=== PATIENT | female | born 1955 | race Caucasian/White ===

== ENCOUNTER 2016-05-08 13:00 | Outpatient (RCR) | payer OTHER ==
[~2016-05-08 13:00] MED LIST: IBUPROFEN600 MG ORAL; NORCO 5-325 TA1 EACH ORAL
== END 2016-06-05 | disposition home or self-care (01) ==
LOC: MERGE 13:00 → PTY 13:00
DX: S92.201 Fracture of unspecified tarsal bone(s) of right foot (principal); X58.XXXD Exposure to other specified factors, subsequent encounter; G40.909 Epilepsy, unspecified, not intractable, without status epilepticus; M81.0 Age-related osteoporosis without current pathological fracture
CPT/HCPCS: 97110; 97140; 97162; G0283

== ENCOUNTER 2016-06-06 10:00 | Outpatient (RCR) | payer OTHER | END 2016-07-03 | disposition home or self-care (01) | LOC: MERGE 10:00 → PTY 10:00 | DX: S92.901G Unspecified fracture of right foot, subsequent encounter for fracture with delayed healing (principal) | CPT/HCPCS: 97110; 97140; G0283 ==

== ENCOUNTER 2016-07-04 11:11 | Outpatient (RCR) | payer OTHER | END 2016-08-03 | disposition home or self-care (01) | LOC: MERGE 11:11 → PTY 11:11 | DX: S92.901G Unspecified fracture of right foot, subsequent encounter for fracture with delayed healing (principal) ==

== ENCOUNTER 2016-08-08 10:54 | Outpatient (RCR) | payer OTHER | END 2016-09-02 | disposition home or self-care (01) | LOC: PTY 10:54 | DX: S92.901G Unspecified fracture of right foot, subsequent encounter for fracture with delayed healing (principal) ==

== ENCOUNTER 2016-09-03 11:00 | Outpatient (RCR) | payer OTHER | END 2016-10-03 | disposition home or self-care (01) | LOC: PTY 11:00 | DX: S92.901G Unspecified fracture of right foot, subsequent encounter for fracture with delayed healing (principal) ==

== ENCOUNTER 2016-10-26 11:00 | Outpatient (RCR) | payer OTHER | END 2016-11-02 | disposition home or self-care (01) | LOC: PTY 11:00 | DX: S42.031D Displaced fracture of lateral end of right clavicle, subsequent encounter for fracture with routine healing (principal) ==

== ENCOUNTER 2016-11-05 13:00 | Outpatient (RCR) | payer OTHER | END 2016-12-03 | disposition home or self-care (01) | LOC: PTY 13:00 | DX: S42.031D Displaced fracture of lateral end of right clavicle, subsequent encounter for fracture with routine healing (principal); X58.XXXD Exposure to other specified factors, subsequent encounter ==

== ENCOUNTER 2016-11-21 12:30 | Outpatient (RCR) | payer OTHER | END 2016-12-03 | disposition home or self-care (01) | LOC: PTY 12:30 | DX: S82.891D Other fracture of right lower leg, subsequent encounter for closed fracture with routine healing (principal); S42.031D Displaced fracture of lateral end of right clavicle, subsequent encounter for fracture with routine healing; X58.XXXD Exposure to other specified factors, subsequent encounter | CPT/HCPCS: J2405 ==

== ENCOUNTER 2017-01-23 11:41 | Outpatient (RCR) | payer OTHER | END 2017-02-02 | disposition home or self-care (01) | LOC: PTY 11:41 | DX: S42.031D Displaced fracture of lateral end of right clavicle, subsequent encounter for fracture with routine healing (principal) ==

== ENCOUNTER 2017-03-01 11:00 | Outpatient (RCR) | payer OTHER | END 2017-03-05 | disposition home or self-care (01) | LOC: PTY 11:00 | DX: S42.031D Displaced fracture of lateral end of right clavicle, subsequent encounter for fracture with routine healing (principal) ==

== ENCOUNTER 2017-03-27 11:00 | Outpatient (RCR) | payer OTHER | END 2017-04-04 | disposition home or self-care (01) | LOC: PTY 11:00 | DX: S82.891D Other fracture of right lower leg, subsequent encounter for closed fracture with routine healing (principal) ==

== ENCOUNTER 2017-04-17 11:05 | Outpatient (RCR) | payer OTHER | END 2017-05-05 | disposition home or self-care (01) | LOC: PTY 11:05 | DX: S82.91 Unspecified fracture of right lower leg (principal) ==

== ENCOUNTER 2017-05-02 11:00 | Outpatient (RCR) | payer OTHER | END 2017-05-05 | disposition home or self-care (01) | LOC: PTY 11:00 | DX: S42.031D Displaced fracture of lateral end of right clavicle, subsequent encounter for fracture with routine healing (principal) ==

== ENCOUNTER 2017-05-22 11:15 | Outpatient (RCR) | payer OTHER | END 2017-06-05 | disposition home or self-care (01) | LOC: PTY 11:15 | DX: S42.031D Displaced fracture of lateral end of right clavicle, subsequent encounter for fracture with routine healing (principal) ==

== ENCOUNTER 2017-06-10 11:15 | Outpatient (RCR) | payer OTHER | END 2017-07-03 | disposition home or self-care (01) | LOC: PTY 11:15 | DX: S42.031D Displaced fracture of lateral end of right clavicle, subsequent encounter for fracture with routine healing (principal) ==

== ENCOUNTER 2017-07-05 11:00 | Outpatient (RCR) | payer OTHER | END 2017-08-03 | disposition home or self-care (01) | LOC: PTY 11:00 | DX: S42.031D Displaced fracture of lateral end of right clavicle, subsequent encounter for fracture with routine healing (principal); X58.XXXD Exposure to other specified factors, subsequent encounter ==

== ENCOUNTER 2017-07-22 11:15 | Outpatient (RCR) | payer OTHER | END 2017-08-03 | disposition home or self-care (01) | LOC: PTY 11:15 | DX: S82.891D Other fracture of right lower leg, subsequent encounter for closed fracture with routine healing (principal); S82.91 Unspecified fracture of right lower leg; X58.XXXD Exposure to other specified factors, subsequent encounter ==

== ENCOUNTER 2017-08-07 11:00 | Outpatient (RCR) | payer OTHER | END 2017-09-02 | disposition home or self-care (01) | LOC: PTY 11:00 | DX: S82.891D Other fracture of right lower leg, subsequent encounter for closed fracture with routine healing (principal); X58.XXXD Exposure to other specified factors, subsequent encounter ==

== ENCOUNTER 2017-09-26 10:35 | Outpatient (RCR) | payer OTHER | END 2017-10-03 | disposition home or self-care (01) | LOC: PTY 10:35 | DX: S43.004D Unspecified dislocation of right shoulder joint, subsequent encounter (principal); X58.XXXD Exposure to other specified factors, subsequent encounter ==

== ENCOUNTER 2017-10-10 11:00 | Outpatient (RCR) | payer OTHER | END 2017-11-02 | disposition home or self-care (01) | LOC: PTY 11:00 | DX: S43.004D Unspecified dislocation of right shoulder joint, subsequent encounter (principal); X58.XXXD Exposure to other specified factors, subsequent encounter ==

== ENCOUNTER 2017-11-07 11:15 | Outpatient (RCR) | payer OTHER | END 2017-12-03 | disposition home or self-care (01) | LOC: PTY 11:15 | DX: S43.004D Unspecified dislocation of right shoulder joint, subsequent encounter (principal); X58.XXXD Exposure to other specified factors, subsequent encounter ==